=== PATIENT | female | born 1980 | race Caucasian/White ===

== ENCOUNTER → 2018-06-08 12:20 | Observation (INO) ==
[2018-06-08 10:03] LABS: Bacteria,Urine Few per hpf (None-Few); Bilirubin,Urine Negative (Negative); Blood,Urine Negative (Negative); Clarity,Urine Clear (Clear); Color,Urine Yellow (Yellow); Glucose,Urine (UA) Normal (Normal); Hyaline Casts,Urine None Seen per lpf (None-Few); Ketones,Urine Negative (Negative); Leukocyte Esterase,Urine Small (Negative); Nitrite,Urine Negative (Negative); Protein,Urine 30 mg/dL (Neg-Trace); Specific Gravity,Urine 1.023 (1.010-1.025); Squamous Epithelial Cell,Urine Many per lpf (None-Few); Urobilinogen,Urine Normal (Normal); WBC,Urine 15-30 per hpf (0-3)
[2018-06-08 11:47] LABS: Amphetamine Screen,Urine Negative ng/mL (Cutoff=1000); Barbiturate Screen,Urine Negative ng/mL (Cutoff=200); Benzodiazepines Screen,Urine Negative ng/mL (Cutoff=200); Cannabinoid Screen,Urine Negative ng/mL (Cutoff = 50); Cocaine Screen,Urine Negative ng/mL (Cutoff= 300); Opiate Screen,Urine Negative ng/mL (Cutoff=300); Phencyclidine Screen,Urine Negative ng/mL (Cutoff=25)
--- NOTE | 2018-06-08 11:47 | OB/GYN History & Physical ---
Date of Encounter: 06/08/18 Time of Encounter: 11:41 Assessment and Plan (1) contractions Status: Acute Patient to be monitored in-house with uterine tocometer and monitor. Pelvic exam will be performed to assess for cervical effacement and dilation. History of Present Illness Chief complaint: labor evaluation HPI: Ms. Hinton is a 37 year old female -() presenting to [facility] labor and delivery at 33 weeks + 2 days gestation for evaluation of contractions. Patient has a history of 2 prior spontaneous abortions. Patient states that 3 days ago she began developing a headache that culminated yesterday with a severe headache that the patient describes as a migraine which was associated with nausea and vomiting. Patient states that she has a history of migraines in all previous pregnancies that this episode was similar to priors. The patient states that this morning she was awoken from sleep at approximately 4 AM with regular and severe contractions occurring approximately 5 minutes apart. Patient states that this time her stomach felt "tight" and that she felt reduced movement from the fetus. Patient states that her contractions have been constant since this time but have since decreased in frequency and amplitude. Patient states that she currently feels that the baby has returned to its normal baseline movements, and denies bleeding, discharge, or leakage. -Patient states that she is scheduled for elective section on 2017. Review of systems: The patient denies vision change, chest pain, shortness of breath, difficulty with ambulation, or difficulties with urination or defecation -including hematuria or hematochezia. Past Med Surg Social Fam HX - Past Medical History Medical history: no medical history Psychiatric history: anxiety, depression - Past Surgical History Surgical History: , cholecystectomy - Social History Smoking Status: Never smoker Smokeless Tobacco Status: No Alcohol use: none Drug use: none Obstetrical History - Pregnancies : 5 Para: 2 Term: 2 : 0 Ab's: 2 Livin Medications and Allergies Vit/Iron Fumarate/FA [ Tablet] 1 tab PO DAILY 06/08/18 [History ] 3 Allergy/AdvReac Type Severity Reaction Status Date / Time No Known Allergies Allergy Verified 12/30/17 00:20 Review of System OB - Constitutional Constitutional ROS IM: headache(s) - Cardiovascular Cardiovascular: palpitations (Patient states that this is occurred intermittently) - Gastrointestinal Gastrointestinal: nausea, vomiting Exam - Constitutional Constitutional: well developed, well nourished, no acute distress, morbidly obese, other (Patient is alert and oriented, engaged to conversation. Speech is fluid and answers questions appropriately.) - HEENT HEENT: EOMI, PERRL, Normocephaly, Mucus Membranes Moist - Neck Neck exam: normal inspection, trachea midline - Lungs Respiratory exam: CTAB - Cardiovascular Cardiovascular exam: RRR, +S1, +S2, systolic murmur (Patient possesses a grade 2 /6 systolic heart murmur which was unknown to the patient.) - Abdomen Abdomen: Present: gravid, non tender (Mild tenderness noted mid abdomen, patient attributes to tocometer monitor). Absent: diffuse tenderness, guarding noted Results Abnormal lab results Urine Protein 30 mg/dL (Neg-Trace) H 06/08/18 08:40 Ur Leukocyte Esterase Small (Negative) H 06/08/18 08:40 Urine Microscopic RBC 3-5 per hpf (0-3) H 06/08/18 08:40 Urine Microscopic WBC 15-30 per hpf (0-3) H 06/08/18 08:40 Ur Squamous Epith Cells Many per lpf (None-Few) H 06/08/18 08:40 Ur Culture Indicated? NO. (NO) A 06/08/18 08:40 All other labs normal. - VTE Reasons for not Prescribing Prophylaxis: Treatment not Indicated - Low risk for VTE
== END | disposition home or self-care (01) ==
LOC: 1NENULAB
PROVIDERS: ADMIT Obstetrics & Gynecology; ATTEND Obstetrics & Gynecology

== ENCOUNTER 2018-07-17 10:04 | Inpatient (IN) ==
[2018-07-17] MEDS ORDERED: Ringers Solution, Lactated 1,000 ML IVC ONE (10:36)
[2018-07-17] MEDS ORDERED: CeFAZolin Syr 3,000MG/30 ML 3,000 MG/30 ML SYRINGE IVPB ONE (10:36)
[2018-07-17] MEDS ORDERED: Famotidine 20 MG/2 ML VIAL IVP PRN (10:39)
[2018-07-17] MEDS ORDERED: Metoclopramide 10 MG/2 ML VIAL IVP PRN ×2 (10:39→17:43)
[2018-07-17] MEDS ORDERED: Ringers Solution, Lactated 1,000 ML IVC SCH (10:45)
--- NOTE | 2018-07-17 11:32 | OB/GYN History & Physical ---
Date of Encounter: 07/17/18 Time of Encounter: 11:26 Assessment and Plan (1) 39 weeks gestation of Current visit: Yes Status: Acute Admit to labor and delivery to repeat primary low transverse section Continous monitoring (2) Obesity affecting Current visit: Yes Status: Acute Qualifiers: Trimester: third trimester Qualified Code(s): O99.213 - Obesity complicating , third trimester (3) Advanced maternal age (AMA) in Current visit: Yes Status: Acute (4) High-risk in third trimester Current visit: Yes Status: Acute (5) Previous section complicating Current visit: Yes Status: Acute History of Present Illness Chief complaint: Repeat Primary Low Transverse Section HPI: Ms. Hinton is a 37 year old female who presents at 39 weeks 0 days for repeat primary low transverse section. Pt endorses good movement, and denies vaginal bleeding or loss of clear fluid. Denies complications during this , aside from nausea/vomiting early in . Currently denies headaches, blurry vision, SOB, chest pain, nausea, vomiting. Pt has been seen by Dr. Motta throughout . Labs: Blood Type: O positive GBS: Negative Hep B Surf Ag: Negative HIV Ab: Negative Treponema Ab: Negative G/C: Negative Varicella: Immune Rubella: Immune Past Med Surg Social Fam HX - Past Medical History Attestation: Yes The following information was validated with the patient. Source: patient Medical history: no medical history Psychiatric history: anxiety, depression - Past Surgical History Surgical History: , cholecystectomy - Social History Smoking Status: Never smoker Smokeless Tobacco Status: No Alcohol use: none Drug use: none - Family History Mother Living Status: Still Living Hx Family Cardiac Disorders: Yes (HTN) Hx Family Endocrine Disorder: Yes (DM) Hx Family Medical Disorders: Yes (Hoshimotos disease) Obstetrical History - Pregnancies : 5 Para: 2 Term: 2 : 0 Ab's: 2 Livin Medications and Allergies Vit/Iron Fumarate/FA [ Tablet] 1 tab PO DAILY 06/08/18 [History ] 3 Allergy/AdvReac Type Severity Reaction Status Date / Time No Known Allergies Allergy Verified 12/30/17 00:20 Review of System OB All systems PM: reviewed and no additional remarkable complaints except as stated Exam - Vital Signs Vital signs: Vital signs reviewed and stable - Constitutional Constitutional: well developed, well nourished, no acute distress, morbidly obese - HEENT HEENT: EOMI, Normocephaly, Mucus Membranes Moist - Neck Neck exam: full ROM, normal inspection - Lungs Respiratory exam: CTAB - Cardiovascular Cardiovascular exam: RRR, +S1, +S2 - Abdomen Abdomen: Present: bowel sounds normal, gravid - Extremities Extremities exam: full ROM, normal capillary refill, normal inspection, pedal edema (1+ pedal edema) Deep Tendon Reflex Grade: 2+ Normal Results Result Diagrams: 07/17/18 10:36 All other labs normal. - Attending Attestation I examined this patient and my medical decision-making was reviewed with the Resident Physician. I agree with the documented findings, disposition and treatment plan as described except to the extent set forth below. Sheldon Motta
[2018-07-17 11:40] LABS: Basophils % 0.5 %; Eosinophils # 0.1 K/mcL (0.0-0.6); Eosinophils % 0.9 %; Hematocrit 33.9 % (35.3-44.9); Hemoglobin 11.7 g/dL (11.5-15.4); Immature Granulocytes % 0.5 % (0-4); Lymphocytes # 1.7 K/mcL (0.6-4.6); Lymphocytes % 21.4 %; Mean Corpuscular HGB Conc 34.5 g/dL (31.6-35.5); Mean Corpuscular Hemoglobin 29.8 pg (28.0-33.3); Mean Corpuscular Volume 86.5 fL (83.0-100.0); Mean Platelet Volume 11.7 fL (9.4-12.4); Monocytes # 0.6 K/mcL (0.0-1.3); Monocytes % 7.4 %; Neutrophils # 5.5 K/mcL (1.6-8.9); Platelet Count 211 K/mcL (140-400); Red Blood Count 3.92 M/mcL (3.82-4.97); Red Cell Distribution Width 13.3 % (11.5-14.5); Segmented Neutrophils % 69.3 %
--- NOTE | 2018-07-17 11:45 | Anesthesia Evaluation PreOp ---
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 Other Medical History: GERD, Other (obesity BMI=48.3) Anesthesia History: No Prior Anesthetic Complications, Past Anesthesia : Yes (IUP 39 weeks, ) Alcohol Use: none Drug use: none Medications and Allergies Vit/Iron Fumarate/FA [ Tablet] 1 tab PO DAILY 06/08/18 [History ] 3 Allergy/AdvReac Type Severity Reaction Status Date / Time No Known Allergies Allergy Verified 12/30/17 00:20 - Meds/Allergy Pre-op Review Medications Reviewed: Yes Allergies Reviewed: Yes Beta Blockers on Current Med List: No Anesthesia Results - Labs 07/17/18 10:36 - Imaging EKG: report reviewed (06/22/2016 SINUS RHYTHM NONSPECIFIC T-WAVE ABNORMALITY) Anesthesia Exam 3 Vital Signs BP 137/97 Pulse 75 FHT's 130's Height: 5'3''/1.6m Weight: 272 lbs/123.6 kg NPO (# of Hours): 8 Pain Scale: 0 Pain Scale Used: Numeric (1 - 10) - HEENT Pupil (Motor): EOMI Mallampati: III Teeth: Normal Oral Opening: Greater than 3 - INDUSTRIAL EDUCATION TEACHER LOC: Oriented INDUSTRIAL EDUCATION TEACHER Motor: Normal RUE, Normal LUE, Normal RLE, Normal LLE, Normal Face INDUSTRIAL EDUCATION TEACHER Sensory: Normal: RUE, LUE, RLE, LLE, Face - Cardiac Rhythm: Regular Murmur: None - Pulmonary Breath Sounds: bilateral Clear Respiratory Effort: Symmetrical Anesthesia Assess/Plan ASA Score: 3 Modified Burgess Scale for Level of Consciousness: Cooperative, oriented, and tranquil Anesthetic Plan: Regional Monitoring Plan: Standard Monitors Recovery Plan: PACU
[2018-07-17 11:48] LABS: Amphetamine Screen,Urine Negative ng/mL (Cutoff=1000); Barbiturate Screen,Urine Negative ng/mL (Cutoff=200); Benzodiazepines Screen,Urine Negative ng/mL (Cutoff=200); Cannabinoid Screen,Urine Negative ng/mL (Cutoff = 50); Cocaine Screen,Urine Negative ng/mL (Cutoff= 300); Opiate Screen,Urine Negative ng/mL (Cutoff=300); Phencyclidine Screen,Urine Negative ng/mL (Cutoff=25)
[2018-07-17] MEDS ORDERED: EPHEDrine 50 MG/ML VIAL ONE (11:56)
[2018-07-17] MEDS ORDERED: *HR* FentaNYL (PF) 100 MCG/2 ML VIAL ONE (11:56)
[2018-07-17] MEDS ORDERED: *HR* Morphine Sulfate/PF 10 MG/10 ML AMPUL ONE (11:56)
[2018-07-17] MEDS ORDERED: Water for inj. (sterile) 10 ML IV ONE (11:57)
[2018-07-17] MEDS ORDERED: *HR* Phenylephrine 10 MG/ML VIAL ONE (11:59)
[2018-07-17] MEDS ORDERED: *HR* Oxytocin 10 UNIT/ML VIAL IM ONE (12:00)
[2018-07-17] MEDS ORDERED: Lidocaine -MPF 2% 5 ML VIAL ONE (12:03)
[2018-07-17] MEDS ORDERED: Bupivacaine/PF 0.75% in Dex 2 ML AMPUL INFILT ONE (12:04)
--- NOTE | 2018-07-17 12:24 | OB/GYN Procedure Note ---
Section - Date of procedure: 07/17/18 Preop diagnosis: other (Intrauterine at 39 0/7 wks, previous section 1, desires sterilization) Post-op diagnosis: same Procedure: repeat low transverse, bilateral tubal ligation Surgeon: Nando Motta Quantitated Blood Loss: 300 Was there an hearing aid assistant present: No Anesthesiologist: Adi Del Toro [employer] Supervisor: Danna Sheikh Anesthesia Type: Spinal section complications: none Disposition: L&D Recovery Room Specimens: Right tube segment, Left tube segment - Infant (s) A Infant Delivery Date: 07/17/18 Infant Delivery Time: 13:25 Presentation: vertex Position: TITO Route of delivery: other (section) Gender: Female Viability: Viable Pounds: 6 Ounces: 12 Gram Weight: 3.075 kg at 1 minute: 9 at 5 minutes: 9 Shoulder Dystocia: not encountered Specimens collected: cord blood Placenta: spontaneous Cord: 3 umbilical vessels - Narrative Narrative: Patient is a 37-year-old 5 para 20-2 at 39-0/7 weeks who presented to labor and delivery for repeat low transverse section with bilateral tubal ligation. 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 She was placed in the dorsal supine position with leftward tilt prepped and draped in usual fashion. Timeout was then obtained a Pfannenstiel incision was made with a scalpel carried down to the underlying tissue to the fascia was identified. The fascia was nicked in the midline extended laterally with the Tolliver scissors. The superior and inferior edges the fascia grasped tented up and dissected off the rectus muscles. Rectus muscles were in the midline parietal peritoneum was identified tented up and entered sharply. This was extended superiorly and inferiorly with Metzenbaum scissors. The bladder blade was inserted the vesicouterine peritoneum was identified tented up and entered sharply. This was extended laterally and bladder flap was created digitally. The lower uterine segment was incised with a scalpel and extended laterally with digital manipulation. Membranes ruptured infant's head was then delivered cord skunk cut and was handed off to waiting pediatric team. Cord blood was collected. Placenta was then delivered spontaneously with a three-vessel cord. Uterus was exteriorized cleared of all clots and debris the lower uterine segment was closed using an 0 Vicryl in a running locking stitch in a 2 layer closure. Good hemostasis was noted. Attention was then turned to the fallopian tubes the distal portion of each tube was then suture ligated with 0 plain 2 including the fimbria removing that section of the tube with good hemostasis noted ovaries were noted be normal. The uterus was returned to the abdomen and gutters were cleansed of all clots and debris and copiously irrigated. Good hemostasis was noted the fascia was closed using a #1 stratafix in a running stitch skin was then closed using a 4-0 Vicryl in a subcuticular manner. All needles lap sponge counts were correct 3 she did receive preoperative antibiotics a DIANA dressing was then applied.
[2018-07-17] MEDS ORDERED: Ondansetron 4 MG/2 ML VIAL IVP ONE (13:40)
[2018-07-17] MEDS ORDERED: *HR* HYDROmorphone (PF) 1 MG/ML SYRINGE IVP PRN (13:40)
[2018-07-17] MEDS ORDERED: Acetaminophen IV 1,000 MG/100 ML INFUS..BTL IVPB ONE (13:40)
[2018-07-17] MEDS ORDERED: *HR* Morphine 2 MG/ML SYRINGE IVP PRN (13:40)
[2018-07-17] MEDS ORDERED: *HR* Promethazine 25 MG/ML VIAL IVP PRN (13:40)
[2018-07-17] MEDS ORDERED: 0.9 % Sodium Chloride 1,000 ML IVC SCH (17:43)
[2018-07-17] MEDS ORDERED: Oxytocin 20 units/ LR 1000 mL 20 UNIT/1,000 ML BAG IVC SCH ×2 (17:43)
[2018-07-17] MEDS ORDERED: *HR* OxyCODONE/APAP 5/325 TABLET PO PRN (17:43)
[2018-07-17] MEDS ORDERED: Simethicone 80 MG TAB.CHEW PO PRN (17:43)
[2018-07-17] MEDS ORDERED: Ibuprofen 600 MG TABLET PO PRN (17:43)
[2018-07-17] MEDS ORDERED: Ondansetron 4 MG/2 ML VIAL IVP PRN (17:43)
[2018-07-17] MEDS ORDERED: Sennosides 8.6 MG TABLET PO PRN (17:43)
[2018-07-18 04:35] LABS: Basophils % 0.1 %; Eosinophils # 0.1 K/mcL (0.0-0.6); Eosinophils % 0.7 %; Hematocrit 31.2 % (35.3-44.9); Hemoglobin 10.7 g/dL (11.5-15.4); Immature Granulocytes % 0.4 % (0-4); Lymphocytes % 10.8 %; Mean Corpuscular HGB Conc 34.3 g/dL (31.6-35.5); Mean Corpuscular Hemoglobin 30.1 pg (28.0-33.3); Mean Corpuscular Volume 87.6 fL (83.0-100.0); Monocytes # 0.4 K/mcL (0.0-1.3); Monocytes % 3.7 %; Platelet Count 127 K/mcL (140-400); Red Blood Count 3.56 M/mcL (3.82-4.97); Red Cell Distribution Width 13.2 % (11.5-14.5); Segmented Neutrophils % 84.3 %
--- NOTE | 2018-07-18 08:42 | OB/GYN Progress Note ---
Date of Encounter: 07/18/18 Time of Encounter: 08:40 - Assessment and Plan (1) delivery delivered Current Visit: Yes Status: Acute Continue routine post-op/post care Anticipate discharge home tomorrow. Subjective - Subjective Principal diagnosis: Repeat Interval history: S/P Repeat Delivery Day 1 Pain is well controlled Lochia is light and without clots VSS Tolerating regular diet, passing flatus Voiding without difficulty Discharge home tomorrow Patient reports: appetite normal, voiding normally, pain well controlled, ambulating normally [place]: doing well, bottle feeding Objective - Vital Signs Latest vital signs: Vital Signs Temp Pulse Resp BP Pulse Ox 07/18/18 08:24 98.6 F 65 16 114/68 07/18/18 05:06 98.4 F 77 14 125/80 97 07/18/18 01:00 98.3 F 65 14 121/69 100 07/17/18 19:45 97.7 F 52 16 129/72 100 07/17/18 17:45 98.6 F 54 14 125/70 99 07/17/18 17:15 97.8 F 56 14 125/68 100 07/17/18 16:45 97.7 F 50 14 139/67 100 Intake and Output 07/17/18 07/18/18 07/18/18 23:59 07:59 15:59 Output Total 250 / 250 550 / 550 Balance -250 / -250 -550 / -550 Output: Catheter 250 / 250 550 / 550 Other: Weight 122.3 kg 120.202 kg Patient Weight 07/18/18 23:59 Weight 120.202 kg - Exam Lungs: bilateral: normal Chest: Normal S1, Normal S2 Extremities: Present: normal Abdomen: Present: normal appearance, soft. Absent: gravid Incision: Present: normal, dry, intact Uterus: Present: normal, firm Fundal Height: 0 (@u) - Labs Labs: Laboratory Results - last 24 hr 07/17/18 07/17/18 07/18/18 10:36 10:36 03:56 WBC 7.9 9.5 RBC 3.92 3.56 L Hgb 11.7 10.7 L Hct 33.9 L 31.2 L MCV 86.5 87.6 MCH 29.8 30.1 MCHC 34.5 34.3 RDW 13.3 13.2 Plt Count 211 127 L MPV 11.7 12.0 Immature Gran % 0.5 0.4 Seg Neutrophils % 69.3 84.3 Lymphocytes % 21.4 10.8 Monocytes % 7.4 3.7 Eosinophils % 0.9 0.7 Basophils % 0.5 0.1 Neutrophils # 5.5 8.0 Lymphocytes # 1.7 1.0 Monocytes # 0.6 0.4 Eosinophils # 0.1 0.1 Basophils # 0.0 0.0 Urine Opiates Screen Negative Ur Barbiturates Screen Negative Ur Phencyclidine Scrn Negative Ur Amphetamines Screen Negative U Benzodiazepines Scrn Negative Urine Cocaine Screen Negative U Marijuana (THC) Screen Negative Ur Drug Screen Interp See Below
[2018-07-18] MEDS ORDERED: NON-FORMULARY MEDICATION 1 EACH EACH (Prenatal Vit/Iron Fumarate/Fa [Prenatal Tablet] 1 TA PO SCH (09:00)
[2018-07-18] MEDS ORDERED: Prenatal Vit/FA 1 EACH TABLET PO SCH (09:00)
--- NOTE | 2018-07-19 08:01 | Discharge Summary ---
Date of Encounter: 07/19/18 Time of Encounter: 07:58 - Discharge Diagnosis (1) delivery delivered Priority: Primary Status: Acute Comments: S/P Repeat Delivery Day 2 Pain is well controlled Lochia is light and without clots VSS Tolerating regular diet, passing flatus Voiding without difficulty Discharge home today - Discharge Medications Prescriptions: Ibuprofen [Motrin] 600 mg PO Q6HR PRN #30 tablet PRN Reason: Cramping Docusate [Colace] 100 mg PO BID PRN #60 capsule PRN Reason: Constipation Ferrous Sulfate 325 mg PO DAILY #90 tablet OxyCODONE/APAP 5/325 [Percocet 5/325 MG] 1 each PO Q6H PRN 7 Days #28 tablet PRN Reason: Moderate pain 4-6 Home Medications: Vit/Iron Fumarate/FA [ Tablet] 1 tab PO DAILY 06/08/18 [History ] Docusate [Colace] 100 mg PO BID PRN #60 capsule 07/19/18 [Rx] Ferrous Sulfate 325 mg PO DAILY #90 tablet 07/19/18 [Rx] Ibuprofen [Motrin] 600 mg PO Q6HR PRN #30 tablet 07/19/18 [Rx] OxyCODONE/APAP 5/325 [Percocet 5/325 MG] 1 each PO Q6H PRN 7 Days #28 tablet [Rx] Simethicone [Gas-X] 80 mg PO TID PRN tab.chew 07/19/18 [Rx] Allergies/Adverse Reactions: 3 Allergy/AdvReac Type Severity Reaction Status Date / Time No Known Allergies Allergy Verified 12/30/17 00:20 Data Procedures and tests throughout hospitalization: Laboratory Tests 07/17/18 07/17/18 07/18/18 10:36 10:36 03:56 WBC 7.9 9.5 RBC 3.92 3.56 L Hgb 11.7 10.7 L Hct 33.9 L 31.2 L MCV 86.5 87.6 MCH 29.8 30.1 MCHC 34.5 34.3 RDW 13.3 13.2 Plt Count 211 127 L MPV 11.7 12.0 Immature Gran % 0.5 0.4 Seg Neutrophils % 69.3 84.3 Lymphocytes % 21.4 10.8 Monocytes % 7.4 3.7 Eosinophils % 0.9 0.7 Basophils % 0.5 0.1 Neutrophils # 5.5 8.0 Lymphocytes # 1.7 1.0 Monocytes # 0.6 0.4 Eosinophils # 0.1 0.1 Basophils # 0.0 0.0 Urine Opiates Screen Negative Ur Barbiturates Screen Negative Ur Phencyclidine Scrn Negative Ur Amphetamines Screen Negative U Benzodiazepines Scrn Negative Urine Cocaine Screen Negative U Marijuana (THC) Screen Negative Ur Drug Screen Interp See Below Date of admission: 07/17/18 10:04 Primary care physician: Jorge Sanders Discharging clinician: Tesha Pena Anticipated date of discharge: 07/19/18 - Patient Status Disposition: Home, Self-Care Condition: Good Functional capacity at discharge: independent ambulation Overall status at discharge: patient is progressing back to baseline - Discharge Instructions Follow Up With: Jorge Sanders, PAC [Primary Care Provider] - Nando Motta DO [Partnered Physician] - - Diet and Activity Activity: increase activity as tolerated Diet: regular diet Hospital Course Reason for admission: IUP at term Delivery: section Episiotomy: none Laceration: none Other procedures: tubal ligation complications: none Discharge diagnosis: IUP at term delivered [place] baby: female Time Attestation: Total time spent providing and/or coordinating discharge services: Time Spent: Less than 30 minutes - VTE Documentation of Mechanical Device: Intermittent pneumatic compression device Exam - Constitutional Vitals: Temp Pulse Resp BP Pulse Ox 98.3 F 82 16 132/85 98 07/18/18 20:30 07/18/18 20:30 07/18/18 20:30 07/18/18 20:30 07/18/18 20:30 General appearance IM: cooperative, A&O X 3, pleasant - Respiratory Respiratory exam: Present: CTAB - Cardiovascular Cardiovascular exam IM: Present: RRR, +S1, +S2 - GI/Abdominal GI/Abdominal exam IM: normal bowel sounds, soft Incision: normal, dry, intact - Rectal Rectal exam: deferred - Uterine Tone: Firm Uterus Position: At Umbilicus, Midline - Extremities Exam Extremities exam IM: Present: normal capillary refill, normal inspection, radial pulses palpable and symmetrical - Neurological Exam Neurological exam: alert, oriented X3
[2018-07-19 08:43] VITALS: BP 138/81
== END 2018-07-19 11:00 | disposition home or self-care (01) | DRG 540 ==
LOC: 1NENULAB 10:04 → 1NENUOBS 16:45
PROVIDERS: ADMIT Obstetrics & Gynecology; ATTEND Obstetrics & Gynecology